=== PATIENT | female | born 1965 | race Two or more races ===

== ENCOUNTER 2017-08-28 19:02 | Emergency (ER) | payer SELFPAY ==
[~2017-08-28] VITALS: Ht 162.6 cm; Wt 63.5 kg
--- NOTE | 2017-08-28 19:20 | NUR ---
BIBRA 879 FROM HOME C/O N/V X 12 HRS. PT AOX3 RR EVEN AND UNLABORED. NO SOB NOTED. NAD NOTED. NO NVD A THIS TIME. PT NOT DIAPHORETIC. PT GOWNED AND PLACED ON MONITOR WAITING FOR MD RAGLAND.
--- NOTE | 2017-08-28 19:32 | NUR ---
MARIANNE BURGER AT BEDSIDE FOR EVAL.
[2017-08-28] MEDS ORDERED: ONDANSETRON HCL/PF 4 MG/2 ML VIAL ONE (19:42)
[2017-08-28 19:44] LABS: BASOPHILS % (AUTO) 0.4 % (0.0-2.0); EOSINOPHILS % (AUTO) 0.3 % (0.0-6.0); HEMATOCRIT 46 % (33-45); LYMPHOCYTES # (AUTO) 1.7 /CMM (0.8-4.8); LYMPHOCYTES % (AUTO) 18.5 % (20.0-44.0); MEAN CORPUSCULAR HEMOGLOBIN 29 PG (26.0-33.0); MEAN CORPUSCULAR HGB CONC 35 g/dl (31.0-36.0); MEAN CORPUSCULAR VOLUME 83 fL (82-100); MONOCYTES # (AUTO) 0.7 /CMM (0.1-1.30); NEUTROPHILS # (AUTO) 6.9 /CMM (1.8-8.9); NEUTROPHILS % (AUTO) 73.8 % (43.0-81.0); PLATELET COUNT (AUTO) 252 /CMM (150-450); RDW COEFFICIENT OF VARIATION 12.1 (11.5-15.0); WHITE BLOOD COUNT (AUTO) 9.3 K/uL (4.3-11.0)
--- NOTE | 2017-08-28 19:45 | NUR ---
REPORT RECEIVED FROM CHEL FOR MARTHA.
[2017-08-28 19:59] LABS: CALCIUM, SERUM 9.3 mg/dL (8.5-10.1); CREATININE 0.9 mg/dL (0.6-1.3); POTASSIUM 3.4 mmol/L (3.5-5.1)
[2017-08-28] MEDS ORDERED: diphenhydrAMINE HCL 50 MG/ML VIAL ONE (19:59)
[2017-08-28] MEDS ORDERED: diphenhydrAMINE HCL 50 MG/ML VIAL IV ONE (20:00)
[2017-08-28] MEDS ORDERED: IV NS 0.9% 1,000 ML BAG IV ONE (20:00)
[2017-08-28] MEDS ORDERED: ONDANSETRON HCL/PF 4 MG/2 ML VIAL IVP ONE (20:00)
[2017-08-28] MEDS ORDERED: MECLIZINE HCL 25 MG TABLET PO ONE (20:00)
[2017-08-28 20:05] LABS: BILIRUBIN,DIRECT 0.1 mg/dL (0.0-0.2); BILIRUBIN,TOTAL 0.4 mg/dL (0.2-1.0); TOTAL PROTEIN, SERUM 7.8 g/dL (6.4-8.2)
[2017-08-28 20:13] LABS: INR 0.91 (0.87-1.13); PROTHROMBIN TIME 9.5 SECS (9.5-12.7)
[2017-08-28] MEDS ORDERED: MECLIZINE HCL 25 MG TABLET ONE (20:22)
--- NOTE | 2017-08-28 21:01 | NUR ---
MD AT BEDSIDE SPEAKING WITH PATIENT.
[2017-08-28] MEDS ORDERED: IBUPROFEN 600 MG TABLET PO ONE ×2 (21:30→21:50)
[2017-08-28 21:34] LABS: APPEARANCE,URINE Clear (CLEAR); BILIRUBIN,URINE Negative (NEGATIVE); BLOOD, URINE Small Ery/uL (NEGATIVE); COLOR,URINE Yellow (YELLOW); KETONES,URINE Negative (NEGATIVE); LEUKOCYTE ESTERASE ,URINE Negative (NEGATIVE); NITRITE, URINE Negative (NEGATIVE); PH,URINE 6.5 (5.0-8.0); PROTEIN,URINE Negative (NEGATIVE); UGLUCOSE Negative (NEGATIVE); UROBILINOGEN,URINE 0.2 EU/dL (0.2)
[2017-08-28 21:45] LABS: BACTERIA,URINE Moderate /HPF (None Seen); SQUAMOUS EPITHELIAL CELL,UR Moderate /HPF (None Seen)
[2017-08-28 21:46] LABS: WBC,URINE 0-2 /HPF (0-3)
--- NOTE | 2017-08-28 23:49 | NUR ---
IV removed. Catheter intact and site benign. Pressure and 4x4 applied to site. No bleeding noted. Patient discharged with family to home in stable condition. Written and verbal after care instructions given, patient instructed not to drive. Patient verbalizes understanding of instruction.
[2017-08-28 23:51] VITALS: BP 127/74
== END 2017-08-28 23:52 | disposition home or self-care (01) ==
LOC: ER 19:08
DX: R42 Dizziness and giddiness (principal); R11.2 Nausea with vomiting, unspecified
CPT/HCPCS: 36415; 71010; 80048; 80076; 81001; 84484; 84703; 85025; 85730; 87086; 93005; 96361; 96374; 96375; 99285; A4606; J1200; J2405; J7030; J8597; Z7610; 81000-TC

== ENCOUNTER 2024-09-28 06:24 | Emergency (ER) | payer OTHER ==
[~2024-09-28] VITALS: Ht 162.6 cm; Wt 72.6 kg
[2024-09-28 06:32] VITALS: BP 139/80; TEMP 98.4; O2SAT 100
[2024-09-28] MEDS ORDERED: CETI-90 PO (06:42)
[2024-09-28] MEDS ORDERED: dexaMETHasone SOD PHOSPHATE 1 ML ONE (06:45)
[2024-09-28] MEDS ORDERED: dexaMETHasone SOD PHOSPHATE 10 MG/ML VIAL IM ONE (07:00)
== END 2024-09-28 06:53 | disposition home or self-care (01) ==
LOC: ER 06:26
DX: T78.40XA Allergy, unspecified, initial encounter (principal); R21 Rash and other nonspecific skin eruption; X58.XXXA Exposure to other specified factors, initial encounter
CPT/HCPCS: 99282; J1100

== ENCOUNTER 2025-08-29 01:08 | Emergency (ER) | payer OTHER ==
[~2025-08-29] VITALS: Ht 162.6 cm; Wt 72.6 kg
[~2025-08-29 01:08] MED LIST: CETI-90 PO
[2025-08-29 02:13] VITALS: BP 138/84; TEMP 98.4; O2SAT 96
[2025-08-29] MEDS ORDERED: PRED20TA PO (02:39)
[2025-08-29] MEDS ORDERED: dexaMETHasone SOD PHOSPHATE 1 ML ONE (02:41)
[2025-08-29] MEDS ORDERED: dexaMETHasone SOD PHOSPHATE 10 MG/ML VIAL IV ONE (03:00)
== END 2025-08-29 02:47 | disposition home or self-care (01) ==
LOC: ER 01:11
DX: H01.009 Unspecified blepharitis unspecified eye, unspecified eyelid (principal); L29.9 Pruritus, unspecified
CPT/HCPCS: 99283; J1100